=== PATIENT | female | born 1970 | race Hispanic/Latino ===

== ENCOUNTER 2021-10-03 07:21 | Outpatient (CLI) | payer OTHER | END 2021-10-03 07:22 | disposition home or self-care (01) | LOC: BICULT 07:21 | PROVIDERS: ATTEND Family Medicine | DX: N18.1 Chronic kidney disease, stage 1 (principal); M54.50 Low back pain, unspecified; M47.815 Spondylosis without myelopathy or radiculopathy, thoracolumbar region; R93.421 Abnormal radiologic findings on diagnostic imaging of right kidney; R93.422 Abnormal radiologic findings on diagnostic imaging of left kidney | CPT/HCPCS: 72100; 76770; 93975 ==